=== PATIENT | male | born 1970 | race Caucasian/White ===

== ENCOUNTER 2022-03-08 09:27 | Outpatient (REF) | payer BC, SELFPAY ==
[2022-03-08 11:21] LABS: Hematocrit 46.2 % (42.0-52.0); Hemoglobin 15.3 g/dl (14.0-18.0); Mean Corpuscular HGB Conc 33.1 g/dl (31.0-36.0); Mean Corpuscular Hemoglobin 27.7 pg (27.0-33.0); Mean Corpuscular Volume 83.5 fL (80.0-98.0); Mean Platelet Volume 10.8 fL (9.4-12.4); Platelet Count 249 X10*3/uL (160-400); Red Blood Count 5.53 X10*6/uL (4.60-5.80); Red Cell Distribution Width 14.2 % (11.0-16.0); White Blood Count 6.5 X10*3/uL (4.8-10.8)
[2022-03-08 11:23] LABS: Appearance Urine CLEAR; Color Urine YELLOW; Glucose Urine UA NEG (NEG); Leukocyte Esterase Urine NEG (NEG); Nitrite Urine NEG (NEG); PH 7.5 (5.0-8.0); Specific Gravity - Urine 1.015 (1.005-1.025); Urine Blood NEG (NEG); Urine Ketones NEG (NEG); Urine Protein NEG (NEG-TRACE)
[2022-03-08 11:47] LABS: Alanine Aminotransferase 44 U/L (0-40); Albumin Level 4.1 g/dL (3.5-5.0); Alkaline Phosphatase 46 U/L (39-117); Anion Gap 13 (12-20); Aspartate Amino Transferase 23 U/L (5-37); Bilirubin Direct 0.2 mg/dL (0.0-0.5); Bilirubin Total 0.6 mg/dL (0.0-1.0); Blood Urea Nitrogen 16 mg/dL (9-16); Calcium 9.7 mg/dL (8.4-10.2); Carbon Dioxide 26 mmol/L (22-29); Chloride 103 mmol/L (96-108); Cholesterol 176 mg/dL; Estimated Glomerular Filt Rate > 60; Glucose Random 99 mg/dL (60-115); HDL Cholesterol 41 mg/dL; LDL Cholesterol Calculated 118 mg/dl; Potassium 3.5 mmol/L (3.3-5.1); Sodium 138 mmol/L (135-145); Total Protein 7.1 g/dL (6.5-8.0); Triglycerides 87 mg/dL
[2022-03-08 12:22] LABS: Thyroid Stimulating Hormone 2.22 uIU/mL (0.32-4.0)
== END 2022-03-08 09:28 | disposition home or self-care (01) ==
LOC: HO.HMGCLDS 09:27
PROVIDERS: PCP Internal Medicine; Visit Provider Internal Medicine
DX: I10 Essential (primary) hypertension (principal); E78.00 Pure hypercholesterolemia, unspecified
CPT/HCPCS: 36415; 80048; 80061; 80076; 81003; 84443; 85027

== ENCOUNTER 2023-07-31 09:25 | Outpatient (AMB) | payer BC, SELFPAY ==
--- NOTE | 2023-07-31 09:26 | MHC.PC.OV ---
Vital Signs 07/31/23 09:28 Height 5 ft 6 in Weight 204 lb 6 oz BMI 33.0 BP 124/70 Blood Pressure Location Lt brachial Position Sitting Pulse 66 Pulse Source Pulse Oximeter Pulse Oximetry (%) 97 Oxygen Delivery Method Room Air Intake Visit Reasons: Annual Exam Intake Note: Patient is here today for a physical. 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: No Was dental information given to patient?: Patient has dentist HPI Annual Exam HPI Details 52-year-old male presents to the office requesting an annual physical. [facility] Medical History Hypercholesterolemia Essential (primary) hypertension Surgical History History of colonoscopy History of vasectomy Family History Father Prostate cancer Hypertension Mother Hypertension Sister No problems noted. Son No problems noted. Son No problems noted. Social History Housing: House Alcohol intake: never Patient Tobacco Use Status: Never used Tobacco e-Cigarette/Vaping Use: Never Used Second Hand Smoke Exposure: No service: No Current occupational status: employed Cognitive needs: No Hearing needs: No Vision needs: Yes (Glasses) Questionnaire PHQ-9 Over the last 2 weeks, how often have you been bothered by any of the following problems? 1. Little interest or pleasure in doing things: not at all 2. Feeling down, depressed, or hopeless: not at all 3. Trouble falling or staying asleep, or sleeping too much: not at all 4. Feeling tired or having little energy: not at all 5. Poor appetite or overeating: not at all 6. Feeling bad about yourself - or that you are a failure or have let yourself or your family down: not at all 7. Trouble concentrating on things, such as reading the newspaper or watching television: not at all 8. Moving or speaking so slowly that other people could have noticed. Or the opposite - being so fidgety or restless that you have been moving around a lot more than usual: not at all 9. Thoughts that you would be better off or of hurting yourself in some way: not at all Total score: 0 Depression Screening Interpretation: Negative Source: Developed by Drs. Denis Vallejo, Cassandra Burt, Chaz Pierce and colleagues, with an educational matheus from [employer]. Thrive Questionnaire Date Thrive assessed: 07/31/23 I am a: Patient What is your living situation today?: I have a steady place to live Within the past 12 months, did the food you bought not last and you didn't have the money to get more?: Never true Within the past 12 months, did you worry whether your food would run out before you got money to buy more?: Never true Do you have trouble paying for medicines?: No Do you have trouble getting transportation to medical appointments?: No Do you have trouble paying your heating and electricity bill?: No Do you have trouble taking care of your child, family member or friend?: No Do you have trouble with day-to-day activities such as bathing, preparing meals, shopping, managing finances, etc.?: No Are you currently unemployed and looking for a job?: No Are you interested in more education?: No Currently or been in a relationship where the following occur: no concerns reported AUDIT C Alcohol Use Questionnaire (AUDIT-C) 1. How often do you have a drink containing alcohol?: Never Total Score: 0 PUMA-7 AMB Questionnaire PUMA-7 Date PUMA - 7 assessed: 07/31/23 Feeling nervous, anxious, or on edge: 0 = Not at all Not being able to stop or control worryin = Not at all Worrying too much about different things: 0 = Not at all Trouble relaxin = Not at all Being so restless that it is hard to sit still: 0 = Not at all Becoming easily annoyed or irritable: 0 = Not at all Feeling afraid as if something awful might happen: 0 = Not at all Total PUMA-7 score (0-4 normal; 5-9 mild; 10-14 moderate; 15-21 severe): 0 Source: Developed by Drs. Denis Vallejo, Cassandra Burt, Chaz Pierce and colleagues, with an educational matheus from [employer]. Physical exam (Primary Care) Vital Signs: Last Vital Signs Pulse 66 07/31/23 09:28 BP 124/70 07/31/23 09:28 Pulse Ox 97 07/31/23 09:28 Oxygen Delivery Method Room Air 07/31/23 09:28 Care Plan Goal for BP management: Blood pressure is in range. Continue current medications. BMI result Body Mass Index 33.0 BMI Assessment/Plan discussion: High (1 lb per week weight loss suggested) BMI High, discussed plan: lifestyle, weight reduction, dietary and physical activity Tobacco/Smoking Status: Tobacco use Status Tobacco use date assessed 07/31/23 07/31/23 09:33 Patient Tobacco Use Status Never used Tobacco 07/31/23 09:33 e-Cigarette/Vaping Use Never Used 07/31/23 09:33 PHQ-9: PHQ-9 Score PHQ-9: Total score 0 07/31/23 09:33 Depression Screening Interpretation: Negative Thrive Assessment: Date of Thrive Assessment Date Thrive assessed 07/31/23 07/31/23 09:33 Currently or been in a relationship where the following occur: no concerns reported Advance Care Planning discussion: Exists, not on file Date of discussion: 07/31/23 Forms completed: Health Care Proxy Time spent: 1-15 minutes, not on file Const General: cooperative and healthy appearing Nutritional Appearance: well nourished Orientation/consciousness: patient oriented x3 Limitations: no limitations HENMT Head: Yes normal to inspection Eyes General: appearance normal, both eyes and all related structures Neck Neck: Yes normal visual inspection Chest Chest palpation & inspection: normal palpation of entire chest wall Resp Effort & Inspection: normal respiratory effort Neuro General: patient oriented x3 Assessment and Plan Assessment & Plan (1) Essential (primary) hypertension: Code(s): I10 - Essential (primary) hypertension Plan: Blood pressure is in range. Continue medications at same dosage. (2) Hypercholesterolemia: Code(s): E78.00 - Pure hypercholesterolemia, unspecified Plan: Blood work has been ordered. Will call with results. (3) Annual physical exam: Code(s): Z00.00 - Encounter for general adult medical examination without abnormal findings Plan: Updated date on screening Medications: Refilled betamethasone dipropionate 0.05% 1 appl topical DAILY PRN 45 grams 1RF allergic reaction Coding Level of Care Code New Pt Prev Care 40-64y(70289) Diagnoses Essential (primary) hypertension I10 Hypercholesterolemia E78.00 Annual physical exam Z00.00 Additional Codes Vital Signs *Quality* - Advance Care Planning discussion: Exists, not on file ([id number]) Vital Signs *Quality* - Time spent: 1-15 minutes, not on file ([id number])
[2023-07-31 09:28] VITALS: BP 124/70; PULSE 66; O2SAT 97; BMI 33.0
== END 2023-07-31 10:03 | disposition home or self-care (01) ==
PROVIDERS: PCP Internal Medicine; Visit Provider Internal Medicine
DX: I10 Essential (primary) hypertension (principal); E78.00 Pure hypercholesterolemia, unspecified; Z00.00 Encounter for general adult medical examination without abnormal findings
CPT/HCPCS: 1123F; 1124F; 99386; 99396

== ENCOUNTER 2023-10-13 15:39 | Outpatient (AMB) | payer BC, SELFPAY ==
[2023-10-13 15:49] VITALS: BP 100/70; TEMP 36.2; BMI 25.5
--- NOTE | 2023-10-13 15:49 | MHC.OFFWIV ---
Intake Vital Signs 10/13/23 15:49 10/13/23 15:58 Height 5 ft 6 in 5 ft 6 in Weight 71.668 kg 93.44 kg BMI 25.5 33.2 BP 100/70 130/68 Blood Pressure Location Rt brachial Rt brachial Position Sitting Sitting Pulse 85 Pulse Source Pulse Oximeter Temp 97.2 F 99.1 F Temp Source Temporal Artery Scan Temporal Artery Scan Pulse Oximetry (%) 97 Oxygen Delivery Method Room Air Intake Visit Reasons: EST/cough (lobby masked) Intake Note: pt is here today for cough started Friday Patient Tobacco Use Status: Never used Tobacco Allergies No Known Allergies [No Known Allergies*] Allergy (Verified 10/13/23 16:01) Do you need a note to return to daycare/school/sports/work: Yes HPI HPI Comments History of Present Illness Details [age]-year-old who presents with fatigue, malaise, myalgias, cough, sthat started yesterday. No known sick contacts.? Denies chest pain, shortness of breath, nausea, vomiting, abdominal pain, headache vision change, dizziness, weakness, changes in bowel or urinary habits Physical exam benign History and physical exam concerning for viral illness versus bronchitis versus flu versus COVID versus RSV.? Unlikely pneumonia, ACS, dissection, pulmonary embolism, acute respiratory distress Plan at this time viral testing will discharge patient home with supportive measures.? Educated patient on diagnosis and treatment plan, answered all question, patient verbalizes understanding.? At this time patient will be discharged home, advised to return with new or worsening symptoms.? Educated on worrisome signs and symptoms and when to return.? At this time I feel comfortable discharge home. [facility] Medical History Hypercholesterolemia Essential (primary) hypertension Surgical History History of colonoscopy History of vasectomy Family History Father Prostate cancer Hypertension Mother Hypertension Sister No problems noted. Son No problems noted. Son No problems noted. Social History Housing: House Alcohol intake: never Patient Tobacco Use Status: Never used Tobacco e-Cigarette/Vaping Use: Never Used Second Hand Smoke Exposure: No service: No Current occupational status: employed Cognitive needs: No Hearing needs: No Vision needs: Yes (Glasses) Review of Systems Const Details: Constitutional : No Weight loss, No Fever, No Chills, + Fatigue, + Malaise ENT/Mouth : No sore throat, No Rhinorrhea Eyes: No Eye Pain, No Swelling, No Redness Cardiovascular : No Chest Pain, No SOB, No Dyspnea on Exertion, No Orthopnea, No Edema, No Palpitations Respiratory : + Cough, No Sputum, No Wheezing Gastrointestinal : No Nausea, No Vomiting, No Diarrhea, No Constipation, No abdominal Pain, No Hematochezia, No Melena Genitourinary : No Dysuria, No Urinary Frequency, No Hematuria, Musculoskeletal : No joint pain, No Myalgias, No Joint Swelling Skin : No Skin Lesions, No rash Neuro : No Weakness, No Numbness, No Dizziness, No Headache Psych : No Anxiety/Panic, No Depression All other systems reviewed and are negative All systems reviewed & are unremarkable except as noted in HPI and below Physical Exam Vital Signs: Last Vital Signs Temp 99.1 F 10/13/23 15:58 Pulse 85 10/13/23 15:58 BP 130/68 10/13/23 15:58 Pulse Ox 97 10/13/23 15:58 Oxygen Delivery Method Room Air 10/13/23 15:58 BMI result Body Mass Index 33.2 vss Appearance: Alert.? Oriented X3.? No acute distress.? Head: Normocephalic, atraumatic, no step-offs or deformities Eyes: Pupils equal, round and reactive to light.? ENT: Pharynx normal.? Neck: Normal inspection.? Neck supple.? CVS: Normal heart rate and rhythm.? Pulses normal.? Respiratory: No respiratory distress.? Breath sounds normal.? Abdomen: Soft and nontender.? Skin: Skin warm and dry.? Normal skin color.? Normal skin turgor.? Extremities: No lower extremity edema.? No calf ttp. 5/5 strength to bilateral upper and lower extremities Neuro: Oriented X 3.? No motor deficit.? No sensory deficit. CN 2-12 intact Assessment & Plan Assessment & Plan (1) Viral illness: Code(s): B34.9 - Viral infection, unspecified Plan Take your medications as prescribed. If you were prescribed antibiotics today, it is important that you take your medication to their entirety, do not skip any doses, do not finish them early. Follow-up with your primary care provider this week. Return to the emergency department with new or worsening symptoms. Such as fevers, chills, chest pain, shortness of breath, nausea, vomiting, dizziness, headache, vision changes, lethargy In case of emergency call 911 Orders: Orders SARS-CoV2/FLU/RSV Today B34.9 - Viral infection, unspecified Medications: New prednisone 20 mg PO DAILY 5 days 5 tabs 0RF albuterol sulfate 90 mcg/actuation 2 puffs inhalation Q6H PRN 6.7 grams 0RF shortness of breath or wheezing benzonatate 100 mg PO BID PRN 14 caps 0RF cough Coding Level of Care Code Est Pt Level 3 (71356) Diagnoses Viral illness B34.9
[2023-10-13 15:58] VITALS: BP 130/68; PULSE 85; TEMP 37.3; O2SAT 97; BMI 33.2
== END 2023-10-13 16:46 | disposition home or self-care (01) ==
PROVIDERS: PCP Internal Medicine; Visit Provider Physician Assistant
DX: B34.9 Viral infection, unspecified (principal)
CPT/HCPCS: 99213

== ENCOUNTER 2023-10-13 16:03 | Outpatient (REF) | payer BC, SELFPAY ==
[2023-10-14 12:29] LABS: Influenza A PCR POSITIVE (Negative); Influenza B PCR NEGATIVE (Negative); Resp Syncy Virus RNA Qual PCR NEGATIVE (Negative); SARS COV2 PCR INHOUSE NEGATIVE (Negative)
== END 2023-10-13 16:04 | disposition home or self-care (01) ==
LOC: HO.LAB 16:03
PROVIDERS: Visit Provider Physician Assistant
DX: Z11.52 Encounter for screening for COVID-19 (principal); Z20.822 Contact with and (suspected) exposure to COVID-19; B34.9 Viral infection, unspecified
CPT/HCPCS: 0241U

== ENCOUNTER 2024-01-22 09:13 | Outpatient (AMB) | payer BC, SELFPAY ==
--- NOTE | 2024-01-22 09:15 | MHC.PC.OV ---
Vital Signs 01/22/24 09:17 Height 5 ft 6 in Weight 207 lb 4 oz BMI 33.4 BP 110/70 Blood Pressure Location Lt brachial Position Sitting Pulse 86 Pulse Source Pulse Oximeter Pulse Oximetry (%) 99 Oxygen Delivery Method Room Air Intake Visit Reasons: 6 month f/u Intake Note: Patient is here to follow up on HTN, Hypercholesterolemia. Ham Boner Required: No Rental Coordinator: Not Required per policy Accompanied by: Self / Same As Patient Allergies No Known Allergies [No Known Allergies*] Allergy (Verified 01/22/24 09:16) Tobacco use date assessed: 01/22/24 Dental Screening Dental Screen Date: 01/22/24 Did you have a dental visit in the last 12 months?: Yes Did you have a dental problem in the last 6 months where you did not have access to dental care?: No Was dental information given to patient?: Patient has dentist HPI 6 month f/u HPI Details 53-year-old male presents to the office to discuss his chronic medical conditions. Patient is compliant with all medications and reporting no side effects. He did not get any blood work done the last time. Able to function and do activities of daily living. He is worried about his weight. Able to drive at night. [facility] Medical History Obesity (BMI 30.0-34.9) Hypercholesterolemia Essential (primary) hypertension Surgical History History of colonoscopy History of vasectomy Family History Father Prostate cancer Hypertension Mother Hypertension Sister No problems noted. Son No problems noted. Son No problems noted. Social History Housing: House Alcohol intake: never Patient Tobacco Use Status: Never used Tobacco e-Cigarette/Vaping Use: Never Used Second Hand Smoke Exposure: No service: No Current occupational status: employed Cognitive needs: No Hearing needs: No Vision needs: Yes (Glasses) Questionnaire PHQ-9 Over the last 2 weeks, how often have you been bothered by any of the following problems? 1. Little interest or pleasure in doing things: not at all 2. Feeling down, depressed, or hopeless: not at all 3. Trouble falling or staying asleep, or sleeping too much: not at all 4. Feeling tired or having little energy: not at all 5. Poor appetite or overeating: not at all 6. Feeling bad about yourself - or that you are a failure or have let yourself or your family down: not at all 7. Trouble concentrating on things, such as reading the newspaper or watching television: not at all 8. Moving or speaking so slowly that other people could have noticed. Or the opposite - being so fidgety or restless that you have been moving around a lot more than usual: not at all 9. Thoughts that you would be better off or of hurting yourself in some way: not at all Total score: 0 Depression Screening Interpretation: Negative Depression Screening Done: Yes Source: Developed by Drs. Denis Vallejo, Cassandra Burt, Chaz Pierce and colleagues, with an educational matheus from [employer]. Thrive Questionnaire Date Thrive assessed: 01/22/24 I am a: Patient What is your living situation today?: I have a steady place to live Within the past 12 months, did the food you bought not last and you didn't have the money to get more?: Never true Within the past 12 months, did you worry whether your food would run out before you got money to buy more?: Never true Do you have trouble paying for medicines?: No Do you have trouble getting transportation to medical appointments?: No Do you have trouble paying your heating and electricity bill?: No Do you have trouble taking care of your child, family member or friend?: No Do you have trouble with day-to-day activities such as bathing, preparing meals, shopping, managing finances, etc.?: No Are you currently unemployed and looking for a job?: No Are you interested in more education?: No Currently or been in a relationship where the following occur: no concerns reported THRIVE Score: 0 AUDIT C Alcohol Use Questionnaire (AUDIT-C) 1. How often do you have a drink containing alcohol?: Never Total Score: 0 PUMA-7 AMB Questionnaire PUMA-7 Date PUMA - 7 assessed: 01/22/24 Feeling nervous, anxious, or on edge: 0 = Not at all Not being able to stop or control worryin = Not at all Worrying too much about different things: 0 = Not at all Trouble relaxin = Not at all Being so restless that it is hard to sit still: 0 = Not at all Becoming easily annoyed or irritable: 0 = Not at all Feeling afraid as if something awful might happen: 0 = Not at all Total PUMA-7 score (0-4 normal; 5-9 mild; 10-14 moderate; 15-21 severe): 0 Source: Developed by Drs. Denis Vallejo, Cassandra Burt, Chaz Pierce and colleagues, with an educational matheus from [employer]. Physical exam (Primary Care) Vital Signs: Last Vital Signs Pulse 86 01/22/24 09:17 BP 110/70 01/22/24 09:17 Pulse Ox 99 01/22/24 09:17 Oxygen Delivery Method Room Air 01/22/24 09:17 BMI result Body Mass Index 33.4 Tobacco/Smoking Status: Tobacco use Status Tobacco use date assessed 01/22/24 01/22/24 09:21 Patient Tobacco Use Status Never used Tobacco 01/22/24 09:21 e-Cigarette/Vaping Use Never Used 01/22/24 09:21 PHQ-9: PHQ-9 Score PHQ-9: Total score 0 01/22/24 09:21 Depression Screening Interpretation: Negative Thrive Assessment: Date of Thrive Assessment Date Thrive assessed 01/22/24 01/22/24 09:21 Currently or been in a relationship where the following occur: no concerns reported Const General: cooperative and healthy appearing Nutritional Appearance: well nourished Orientation/consciousness: patient oriented x3 Limitations: no limitations HENMT Head: Yes normal to inspection Eyes General: appearance normal, both eyes and all related structures Neck Neck: Yes normal visual inspection Chest Chest palpation & inspection: normal palpation of entire chest wall Resp Effort & Inspection: normal respiratory effort Neuro General: patient oriented x3 Assessment and Plan Assessment & Plan (1) Hypercholesterolemia: Code(s): E78.00 - Pure hypercholesterolemia, unspecified Plan: Blood work has been ordered. Continue medications at same dosage. (2) Essential (primary) hypertension: Code(s): I10 - Essential (primary) hypertension Plan: Blood pressure is in range. Continue medications at same dosage. Blood work has been ordered. Will call with results. (3) Obesity (BMI 30.0-34.9): Code(s): E66.9 - Obesity, unspecified Plan: Counseling on the importance of diet and exercise done. Orders: Orders Basic Metabolic Panel Today E78.00 - Pure hypercholesterolemia, unspecified, I10 - Essential (primary) hypertension Liver Panel Today E78.00 - Pure hypercholesterolemia, unspecified, I10 - Essential (primary) hypertension UA and rflx microscopic Today E78.00 - Pure hypercholesterolemia, unspecified, I10 - Essential (primary) hypertension Prostate Specific Antigen Scr Today E78.00 - Pure hypercholesterolemia, unspecified, I10 - Essential (primary) hypertension Complete Blood Count no Diff Today E78.00 - Pure hypercholesterolemia, unspecified, I10 - Essential (primary) hypertension Lipid Panel Today E78.00 - Pure hypercholesterolemia, unspecified, I10 - Essential (primary) hypertension Thyroid Stimulating Hormone Today E78.00 - Pure hypercholesterolemia, unspecified, I10 - Essential (primary) hypertension Coding Level of Care Code Est Pt Level 4 (09843) Diagnoses Hypercholesterolemia E78.00 Essential (primary) hypertension I10 Obesity (BMI 30.0-34.9) E66.9
[2024-01-22 09:17] VITALS: BP 110/70; PULSE 86; O2SAT 99; BMI 33.4
== END 2024-01-22 09:59 | disposition home or self-care (01) ==
PROVIDERS: PCP Internal Medicine; Visit Provider Internal Medicine
DX: E78.00 Pure hypercholesterolemia, unspecified (principal); E66.9 Obesity, unspecified; Z68.33 Body mass index [BMI] 33.0-33.9, adult; I10 Essential (primary) hypertension
CPT/HCPCS: 99214

== ENCOUNTER 2024-04-22 08:09 | Outpatient (REF) | payer BC, SELFPAY ==
[2024-04-22 10:58] LABS: Hematocrit 46.7 % (42.0-52.0); Hemoglobin 16.1 g/dl (14.0-18.0); Mean Corpuscular HGB Conc 34.5 g/dl (31.0-36.0); Mean Corpuscular Hemoglobin 28.3 pg (27.0-33.0); Mean Corpuscular Volume 82.1 fL (80.0-98.0); Mean Platelet Volume 10.3 fL (9.4-12.4); Platelet Count 254 X10*3/uL (160-400); Red Blood Count 5.69 X10*6/uL (4.60-5.80); White Blood Count 7.5 X10*3/uL (4.8-10.8)
[2024-04-22 11:04] LABS: Appearance Urine Clear; Color Urine Yellow; Glucose Urine UA Negative (Negative); Leukocyte Esterase Urine Negative (Negative); Nitrite Urine Negative (Negative); PH 7.5 (5.0-9.0); Urine Blood Negative (Negative); Urine Ketones Negative (Negative); Urine Protein Negative (Neg-Trace)
[2024-04-22 11:24] LABS: Alanine Aminotransferase 44 U/L (0-40); Albumin Level 4.2 g/dL (3.5-5.0); Alkaline Phosphatase 54 U/L (39-117); Anion Gap 11 (12-20); Aspartate Amino Transferase 24 U/L (5-37); Bilirubin Direct 0.2 mg/dL (0.0-0.5); Bilirubin Total 0.4 mg/dL (0.0-1.0); Blood Urea Nitrogen 15 mg/dL (9-16); Calcium 9.7 mg/dL (8.4-10.2); Carbon Dioxide 29 mmol/L (22-29); Chloride 103 mmol/L (96-108); Cholesterol 171 mg/dL (<200); Estimated Glomerular Filt Rate > 60; Glucose Random 98 mg/dL (60-115); HDL Cholesterol 40 mg/dL (>40); LDL Cholesterol Calculated 114 mg/dL (<100); Potassium 3.2 mmol/L (3.3-5.1); Sodium 140 mmol/L (135-145); Total Protein 7.2 g/dL (6.5-8.0); Triglycerides 87 mg/dL (<150)
[2024-04-22 11:33] LABS: Prostate Specific Antigen Scr 1.38 ng/mL (<0.05-4.0)
[2024-04-22 11:40] LABS: Thyroid Stimulating Hormone 2.26 uIU/mL (0.32-4.0)
== END 2024-04-22 08:10 | disposition home or self-care (01) ==
LOC: HO.10HDL 08:09
PROVIDERS: Visit Provider Internal Medicine
DX: E78.00 Pure hypercholesterolemia, unspecified (principal); I10 Essential (primary) hypertension
CPT/HCPCS: 36415; 80048; 80061; 80076; 81003; 84153; 84443; 85027

== ENCOUNTER 2024-07-20 14:39 | Outpatient (AMB) | payer BC, SELFPAY ==
[2024-07-20 14:41] VITALS: BP 132/78; PULSE 72; TEMP 36.8; O2SAT 97; BMI 33.4
--- NOTE | 2024-07-20 14:41 | AM.OFFWIN_ITS ---
Intake Vital Signs 07/20/24 14:41 Height 5 ft 6 in Weight 207 lb BMI 33.4 BP 132/78 Blood Pressure Location Lt brachial Position Sitting Pulse 72 Pulse Source Pulse Oximeter Temp 98.2 F Temp Source Oral Pulse Oximetry (%) 97 Oxygen Delivery Method Room Air Intake Visit Reasons: EP RT eye red/itchy Intake Note: pt c/o RT eye redness and itchiness. W/ Sticky discharge. Started yesterday Patient Tobacco Use Status: Never used Tobacco Allergies No Known Allergies [No Known Allergies*] Allergy (Verified 07/20/24 14:41) Do you need a note to return to daycare/school/sports/work: No HPI HPI Comments History of Present Illness Details Patient is a 53-year-old male complaining of right eye itchiness and redness and weeping clear fluid. He denies any pain or changes in his vision. He does work at a [id number] and was in the Children's room yesterday so he is concerned it could be bacterial. He denies any cough or congestion, he denies his eye being crusted shut in the morning and denies any yellow discharge. [facility] Medical History Obesity (BMI 30.0-34.9) Hypercholesterolemia Essential (primary) hypertension Surgical History History of colonoscopy History of vasectomy Family History Father Prostate cancer Hypertension Mother Hypertension Sister No problems noted. Son No problems noted. Son No problems noted. Social History Housing: House Alcohol intake: never Patient Tobacco Use Status: Never used Tobacco e-Cigarette/Vaping Use: Never Used Second Hand Smoke Exposure: No service: No Current occupational status: employed Cognitive needs: No Hearing needs: No Vision needs: Yes (Glasses) Review of Systems Const All systems reviewed & are unremarkable except as noted in HPI and below Physical Exam Vital Signs: Last Vital Signs Temp 98.2 F 07/20/24 14:41 Pulse 72 07/20/24 14:41 BP 132/78 07/20/24 14:41 Pulse Ox 97 07/20/24 14:41 Oxygen Delivery Method Room Air 07/20/24 14:41 BMI result Body Mass Index 33.4 Const General: cooperative, healthy appearing, comfortable and no acute distress Orientation/consciousness: patient oriented x3 Limitations: no limitations HEENT Head: Yes normal to inspection Ears: hearing grossly normal bilaterally and external ears normal General nose exam: Normal external nose present, Normal nares present and No nasal discharge present Face and sinus: Yes normal facial exam Mouth: Normal oral and palatal mucosa present and moist mucous membranes Throat: Yes tonsils normal, Yes uvula midline, Yes posterior oropharynx abnormal (Erythema) and Yes cobblestoning Eyes Alignment and Position: alignment normal and position normal Periorbital: periorbital findings normal Eyelids: Yes eyelid abnormality (Slight erythema right upper and lower) Conjunctivae: conjunctival abnormal right conjunctival injection (Slight) and discharge (Watery) Pupils: Equal, round and reactive pupils present EOM: EOMs intact bilaterally Neck Neck: Yes normal visual inspection Resp Effort & Inspection: normal respiratory effort and able to speak in complete sentences Skin General skin exam: no rashes or lesions noted Neuro General: patient oriented x3 Cranial nerves: Yes Equal, round and reactive pupils present Extrem General: Yes normal to inspection and Yes no clubbing, cyanosis or edema Assessment & Plan Assessment & Plan (1) Allergic conjunctivitis of right eye: Code(s): H10.11 - Acute atopic conjunctivitis, right eye Plan: Recommended using Patadene drops. If anything changes and the crusting becomes yellow or his eyes crusted shut in the morning, he can message me and we can send erythromycin ointment but it appears to be allergic. Plan See above Coding Level of Care Code Est Pt Level 3 (40605) Diagnoses Allergic conjunctivitis of right eye H10.11
== END 2024-07-20 15:02 | disposition home or self-care (01) ==
PROVIDERS: PCP Internal Medicine; Visit Provider Physician Assistant
DX: H10.11 Acute atopic conjunctivitis, right eye (principal)

== ENCOUNTER → 2024-07-20 14:39 | Outpatient (BNVA) | payer BC, SELFPAY | PROVIDERS: PCP Internal Medicine | DX: H10.11 Acute atopic conjunctivitis, right eye (principal) ==

== ENCOUNTER 2024-07-29 08:53 | Outpatient (AMB) | payer BC, SELFPAY ==
--- NOTE | 2024-07-29 08:59 | MHC.PC.OV ---
Vital Signs 07/29/24 09:00 Height 5 ft 6 in Weight 205 lb BMI 33.1 BP 130/60 Blood Pressure Location Lt brachial Position Sitting Pulse 74 Pulse Source Pulse Oximeter Pulse Oximetry (%) 98 Oxygen Delivery Method Room Air Intake Visit Reasons: 6mth f/u Intake Note: Patient is here to follow up on HTN, Hypercholesterolemia. Rotational Moulding Operator Required: No Commercial Escrow Assistant: Not Required per policy Accompanied by: Self / Same As Patient Allergies No Known Allergies [No Known Allergies*] Allergy (Verified 07/29/24 09:00) Tobacco use date assessed: 07/29/24 Dental Screening Dental Screen Date: 01/22/24 HPI 6mth f/u HPI Details 53-year-old male presents to the office to discuss his chronic medical conditions. Patient is compliant with medications and reporting no side effects. Able to function and do all activities of daily living. Since the beginning of summer, patient is now experiencing tinnitus. In both ears. Low-frequency. The symptoms are worse especially when he is trying to sleep at night or he is in a quiet environment. He also has a nevus on the right side of the neck that he would like examined. [facility] Medical History Tinnitus Atypical nevi Obesity (BMI 30.0-34.9) Hypercholesterolemia Essential (primary) hypertension Surgical History (Updated 07/29/24 @ 09:10 by Terry Bobo MD) History of colonoscopy (~11/05/18) History of vasectomy Family History Father Prostate cancer Hypertension Mother Hypertension Sister No problems noted. Son No problems noted. Son No problems noted. Social History Housing: House Alcohol intake: never Patient Tobacco Use Status: Never used Tobacco e-Cigarette/Vaping Use: Never Used Second Hand Smoke Exposure: No service: No Current occupational status: employed Cognitive needs: No Hearing needs: No Vision needs: Yes (Glasses) Questionnaire Thrive Questionnaire Date Thrive assessed: 01/22/24 Are you currently unemployed and looking for a job?: No PUMA-7 AMB Questionnaire PUMA-7 Date PUMA - 7 assessed: 01/22/24 Source: Developed by Drs. Denis Vallejo, Cassandra Burt, Chaz Pierce and colleagues, with an educational matheus from [employer]. Physical exam (Primary Care) Vital Signs: Last Vital Signs Pulse 74 07/29/24 09:00 BP 130/60 07/29/24 09:00 Pulse Ox 98 07/29/24 09:00 Oxygen Delivery Method Room Air 07/29/24 09:00 BMI result Body Mass Index 33.1 Tobacco/Smoking Status: Tobacco use Status Tobacco use date assessed 07/29/24 07/29/24 09:03 Patient Tobacco Use Status Never used Tobacco 07/29/24 09:03 e-Cigarette/Vaping Use Never Used 07/29/24 09:03 Thrive Assessment: Date of Thrive Assessment Date Thrive assessed 01/22/24 07/29/24 09:03 Const General: cooperative and healthy appearing Nutritional Appearance: well nourished Orientation/consciousness: patient oriented x3 Limitations: no limitations HENMT Head: Yes normal to inspection Eyes General: appearance normal, both eyes and all related structures Neck Other: Skin: 2 cm lesion with hyperpigmented area at the edges. No evidence of bleeding. Neck: Yes normal visual inspection Chest Chest palpation & inspection: normal palpation of entire chest wall Resp Effort & Inspection: normal respiratory effort Neuro General: patient oriented x3 Assessment and Plan Assessment & Plan (1) Atypical nevi: Code(s): D22.9 - Melanocytic nevi, unspecified Plan: A dermatology appointment has been scheduled for excision of the lesion. (2) Tinnitus: Code(s): H93.19 - Tinnitus, unspecified ear Plan: In ENT appointment has been requested for evaluation of the tinnitus. (3) Hypercholesterolemia: Code(s): E78.00 - Pure hypercholesterolemia, unspecified (4) Essential (primary) hypertension: Code(s): I10 - Essential (primary) hypertension Plan: Blood pressure is in range. Continue medications at same dosage. Orders: Referrals Dermatology Referral D22.9 - Melanocytic nevi, unspecified Ear/Nose/Throat Referral H93.19 - Tinnitus, unspecified ear Coding Level of Care Code Est Pt Level 4 (87010) Diagnoses Atypical nevi D22.9 Tinnitus H93.19 Hypercholesterolemia E78.00 Essential (primary) hypertension I10
[2024-07-29 09:00] VITALS: BP 130/60; PULSE 74; O2SAT 98; BMI 33.1
== END 2024-07-29 09:18 | disposition home or self-care (01) ==
PROVIDERS: PCP Internal Medicine; Visit Provider Internal Medicine
DX: D22.9 Melanocytic nevi, unspecified (principal); H93.19 Tinnitus, unspecified ear; E78.00 Pure hypercholesterolemia, unspecified; I10 Essential (primary) hypertension

== ENCOUNTER → 2024-07-29 08:53 | Outpatient (BNVA) | payer BC, SELFPAY | PROVIDERS: PCP Internal Medicine; Visit Provider Internal Medicine | DX: D22.9 Melanocytic nevi, unspecified (principal); H93.19 Tinnitus, unspecified ear; E78.00 Pure hypercholesterolemia, unspecified; I10 Essential (primary) hypertension ==

== ENCOUNTER 2025-01-27 09:25 | Outpatient (AMB) | payer BC, SELFPAY ==
[2025-01-27 09:29] VITALS: BP 124/74; PULSE 68; TEMP 36.2; O2SAT 98; BMI 33.1
--- NOTE | 2025-01-27 09:29 | A.OFFPC_ITS ---
Vital Signs 01/27/25 09:29 Height 5 ft 6 in Weight 205 lb 2 oz BMI 33.1 BP 124/74 Blood Pressure Location Lt brachial Position Sitting Pulse 68 Pulse Source Pulse Oximeter Temp 97.1 F Temp Source Temporal Artery Scan Pulse Oximetry (%) 98 Oxygen Delivery Method Room Air Intake Visit Reasons: 6 mo follow up Skin Peeling Machine Operator Required: No Accompanied by: Self / Same As Patient Allergies No Known Allergies [No Known Allergies*] Allergy (Verified 01/27/25 10:04) Medication List - Last Reconciled 01/27/25 by Sally Nelson PA-C aspirin (Adult Aspirin Regimen) 81 mg PO DAILY atorvastatin 10 mg PO DAILY betamethasone dipropionate 0.05% 1 appl topical DAILY PRN enalapril maleate 10 mg PO DAILY hydrochlorothiazide 25 mg PO DAILY Tobacco use date assessed: 01/27/25 Dental Screening Dental Screen Date: 01/27/25 Did you have a dental visit in the last 12 months?: Yes Did you have a dental problem in the last 6 months where you did not have access to dental care?: No Was dental information given to patient?: Patient has dentist [facility] Medical History (Updated 01/27/25 @ 10:09 by Sally Nelson PA-C) Follow-up exam, 3-6 months since previous exam Tinnitus Atypical nevi Obesity (BMI 30.0-34.9) Hypercholesterolemia Essential (primary) hypertension Surgical History History of colonoscopy (~11/05/18) History of vasectomy Family History Father Prostate cancer Hypertension Mother Hypertension Sister No problems noted. Son No problems noted. Son No problems noted. Social History Housing: House Alcohol intake: never Patient Tobacco Use Status: Never used Tobacco e-Cigarette/Vaping Use: Never Used Second Hand Smoke Exposure: No service: No Current occupational status: employed Cognitive needs: No Hearing needs: No Vision needs: Yes (Glasses) Questionnaire PHQ-9 Over the last 2 weeks, how often have you been bothered by any of the following problems? 1. Little interest or pleasure in doing things: not at all 2. Feeling down, depressed, or hopeless: not at all 3. Trouble falling or staying asleep, or sleeping too much: not at all 4. Feeling tired or having little energy: not at all 5. Poor appetite or overeating: not at all 6. Feeling bad about yourself - or that you are a failure or have let yourself or your family down: not at all 7. Trouble concentrating on things, such as reading the newspaper or watching television: not at all 8. Moving or speaking so slowly that other people could have noticed. Or the opposite - being so fidgety or restless that you have been moving around a lot more than usual: not at all 9. Thoughts that you would be better off or of hurting yourself in some way: not at all Total score: 0 Depression Screening Interpretation: Negative Depression Screening Done: Yes 09546 - PHQ-9 Billing: Yes Source: Developed by Drs. Denis Vallejo, Cassandra Burt, Chaz Pierce and colleagues, with an educational matheus from [employer]. Thrive Questionnaire Date Thrive assessed: 01/27/25 I am a: Patient What is your living situation today?: I have a steady place to live Within the past 12 months, did the food you bought not last and you didn't have the money to get more?: Never true Within the past 12 months, did you worry whether your food would run out before you got money to buy more?: Never true Do you have trouble paying for medicines?: No Do you have trouble getting transportation to medical appointments?: No Do you have trouble paying your heating and electricity bill?: No Do you have trouble taking care of your child, family member or friend?: No Do you have trouble with day-to-day activities such as bathing, preparing meals, shopping, managing finances, etc.?: No Are you currently unemployed and looking for a job?: No Are you interested in more education?: No Please select the resources that you would like help with: None Currently or been in a relationship where the following occur: No concerns reported THRIVE Score: 0 AUDIT C Alcohol Use Questionnaire (AUDIT-C) 1. How often do you have a drink containing alcohol?: Never 3. How often do you have six or more drinks on one occasion?: Never Total Score: 0 Score Reviewed/Action Taken: No PUMA-7 AMB Questionnaire PUMA-7 Date PUMA - 7 assessed: 01/27/25 Feeling nervous, anxious, or on edge: 0 = Not at all Not being able to stop or control worryin = Not at all Worrying too much about different things: 0 = Not at all Trouble relaxin = Not at all Being so restless that it is hard to sit still: 0 = Not at all Becoming easily annoyed or irritable: 0 = Not at all Feeling afraid as if something awful might happen: 0 = Not at all Total PUMA-7 score (0-4 normal; 5-9 mild; 10-14 moderate; 15-21 severe): 0 Source: Developed by Drs. Denis Vallejo, Cassandra Burt, Chaz Pierce and colleagues, with an educational matheus from [employer]. PUMA-7 Assessment Billing PUMA-7 Assessment Tool: PUMA-7 Assessment 08797 Physical exam (Primary Care) Vital Signs: Last Vital Signs Temp 97.1 F 01/27/25 09:29 Pulse 68 01/27/25 09:29 BP 124/74 01/27/25 09:29 Pulse Ox 98 01/27/25 09:29 Oxygen Delivery Method Room Air 01/27/25 09:29 Care Plan Goal for BP management: <130/80 at Goal BMI result Body Mass Index 33.1 BMI Assessment/Plan discussion: High BMI High, discussed plan: lifestyle, weight reduction, dietary, physical activity and alcohol moderation Tobacco/Smoking Status: Tobacco use Status Tobacco use date assessed 01/27/25 01/27/25 09:31 Patient Tobacco Use Status Never used Tobacco 01/27/25 09:31 e-Cigarette/Vaping Use Never Used 01/27/25 09:31 PHQ-9: PHQ-9 Score PHQ-9: Total score 0 01/27/25 09:31 Depression Screening Interpretation: Negative Thrive Assessment: Date of Thrive Assessment Date Thrive assessed 01/27/25 01/27/25 09:31 Currently or been in a relationship where the following occur: No concerns reported Coding Level of Care Code Est Pt Level 4 (36019) Complex EM visit Add On G2211 Diagnoses Hypercholesterolemia E78.00 Essential (primary) hypertension I10 Obesity (BMI 30.0-34.9) E66.9 Tinnitus H93.19 Follow-up exam, 3-6 months since previous exam Z09 Additional Codes PUMA-7 Assessment Billing - PUMA-7 Assessment Tool: PUMA-7 Assessment 56768 ([id number]) PHQ-9 - 63032 - PHQ-9 Billing: Yes ([id number]) Assessment & Plan Assessment & Plan (1) Hypercholesterolemia: Code(s): E78.00 - Pure hypercholesterolemia, unspecified Category: Medical Plan: LDL level goal less than 100. Triglyceride level goal less than 150. Total cholesterol level goal less than 200. HDL level goal greater than 40. Patient had labs on 04/22/2024 and triglycerides were 87 at goal. Total cholesterol 171 at goal. LDL elevated at 114. HDL was 40 at goal. Patient to continue atorvastatin 10 mg daily. Condition is chronic and stable continue to monitor. (2) Essential (primary) hypertension: Code(s): I10 - Essential (primary) hypertension Category: Medical Plan: Blood pressure goal less than 130/90. Blood pressure at goal. Patient to continue aspirin 81 mg, atorvastatin 10 mg daily, enalapril 10 mg daily, hydrochlorothiazide 25 mg daily. Condition is chronic and stable continue to monitor. (3) Obesity (BMI 30.0-34.9): Code(s): E66.9 - Obesity, unspecified Category: Medical Plan: Patient to improved diet and exercise regimen. Condition is chronic and stable continue to monitor. (4) Tinnitus: Code(s): H93.19 - Tinnitus, unspecified ear Category: Medical Plan: Patient with chronic tinnitus. Denies any other symptoms related to this. Will follow-up on ENT referral placed 05/22/2024 and if new referral is indicated will place. Condition is chronic and stable continue to monitor. (5) Follow-up exam, 3-6 months since previous exam: Code(s): Z09 - Encounter for follow-up examination after completed treatment for conditions other than malignant neoplasm Category: Medical Plan Plan Patient was informed and verbally consented to the use of an ambient scribe for clinic note documentation during this visit. 1. History Of Plantar Fasciitis Resolved Continue preventive stretching exercises; reassess if symptoms recur. 2. Essential Hypertension Continue current antihypertensive therapy; monitor blood pressure and electrolyte levels with regular follow-ups. 3. Atypical Birthmarks Instruct patient to observe for changes; scheduled monitoring as necessary. 4. Obesity Encourage increased physical activity and dietary management to address weight concerns. 5. Hyperlipidemia Advise continuation of atorvastatin; schedule routine lipid profile tests for efficacy monitoring. 6. Tinnitus Follow-up with ENT for persistent tinnitus with referral confirmed; patient instructed to report any increase in symptoms. Discussion Notes In today's visit, we discussed the ongoing management of the patient's tinnitus. He has been experiencing persistent tinnitus, and we confirmed that the referral to ENT would be renewed to investigate further if underlying conditions could be contributing. The patient was advised on monitoring additional symptoms like hearing loss. We reviewed the management of hypertension, which remains well- controlled under current medication, and emphasized the need to continue monitoring for any electrolyte imbalances related to his antihypertensive arlene men. We discussed continued compliance with atorvastatin therapy for hyperlipidemia management and recommended appropriate blood tests to assess control over cholesterol levels. The patient was encouraged to continue exercise to mitigate obesity. Previous plantar fasciitis issues were discussed with recommendations to maintain stretching routines. The patient was reminded to keep monitoring atypical birthmarks and report any changes. We addressed his difficulties with accessing the referral system and agreed to assist as needed. A follow-up plan was agreed upon for six months, prior to which blood work is to be completed to assess the efficacy and adjustments in current therapies. Orders: Orders Hemoglobin A1c Today Z00.00 - Encounter for general adult medical examination without abnormal findings PSA,Total (Free>4and<10) Today Z00.00 - Encounter for general adult medical examination without abnormal findings Patient Instructions: Patient Instructions - Follow up with ENT for tinnitus when contacted for your referral appointment. - Continue taking blood pressure, cholesterol, and other prescribed medications as directed. - Increase your physical activity with regular walking to help manage weight. - Schedule fasting bloodwork before follow-up for kidney, liver, and cholesterol checks. - Monitor for any new or changing symptoms, especially relating to tinnitus or birthmarks, and report these immediately. - Return for a routine check-up in six months, ensuring all recommended tests are completed beforehand. - Ensure engagement in regular stretching for plantar fasciitis prevention. - Maintain a balanced diet as advised to aid in weight management. Scribe Plan - Not visible on output: History of Present Illness The patient is a 54-year-old male presenting for a six-month follow-up for his chronic medical condition. In addition he would like to discuss his tinnitus. He describes the sensation as ringing in the ears that is most noticeable in silent settings. This issue has been persistent, originating approximately six months prior. There is no evidence of associated dizziness or auditory disturbances. Referral to ENT for the current ear condition was placed but not pursued due to oversight with electronic portal systems. The patient has essential hypertension and hyperlipidemia and mentions an incident of low potassium previously identified during routine lab work. He was also diagnosed with obesity and mentions resolved plantar fasciitis of the left foot. Atypical birthmarks have been noted without significant change, and there is a plan to repeat a colonoscopy which he last had in 2019. Review of Systems - Ears: Reports tinnitus (ear ringing) - Constitutional: Denies recent weight change, weakness, or fatigue - Cardiovascular: Denies chest pain or dyspnea - Gastrointestinal: Denies black or bloody stools - Genitourinary: Denies urinary changes Physical Exam Appearance: Alert. Oriented X3. No acute distress. Head: Normal external exam. Normocephalic. Atraumatic. Eyes: Pupils are equal, round, and reactive to light. Extraocular movements intact. Conjunctiva and sclera normal. Eyelids normal. Ears: External auditory canal normal. Tympanic membranes normal. Slight wax present, but not significant enough to cause issues. Throat: Pharynx normal. Uvula midline. Moist mucous membranes. Neck: Normal inspection. Neck supple. Full range of motion. Cardiovascular: Normal heart rate and rhythm. Heart sound normal. No murmurs noted. Pulses normal throughout. Respiratory: No respiratory distress. Painless inspiration. Breath sounds normal. No wheezes/rales/rhonchi noted. Chest nontender. No accessory muscle usage noted or decreased air movement noted. Abdomen: Soft and nontender. Bowel sounds normal in all 4 quadrants. No distention noted. No organomegaly noted. No visible injury noted. Back: Full range of motion noted. Skin: Skin warm and dry. Normal skin color. Normal skin turgor. No rashes/lesions/lacerations noted. Presence of atypical birthmarks. Extremities: No lower extremity edema. Extremities exhibit normal range of motion. Extremities nontender. Neuro: Oriented X 3. No motor deficit. No sensory deficit. Reflexes normal. Results - Labs: Noted previous slightly low potassium level
== END 2025-01-27 09:56 | disposition home or self-care (01) ==
LOC: HO.HMCH 09:26
PROVIDERS: PCP Internal Medicine; Visit Provider Physician Assistant Medical
DX: E78.00 Pure hypercholesterolemia, unspecified (principal); I10 Essential (primary) hypertension; E66.9 Obesity, unspecified; Z68.33 Body mass index [BMI] 33.0-33.9, adult; H93.11 Tinnitus, right ear; H93.12 Tinnitus, left ear

== ENCOUNTER → 2025-01-27 09:25 | Outpatient (BNVA) | payer BC, SELFPAY | PROVIDERS: PCP Internal Medicine; Visit Provider Physician Assistant Medical | DX: E78.00 Pure hypercholesterolemia, unspecified (principal); I10 Essential (primary) hypertension; E66.9 Obesity, unspecified; Z68.33 Body mass index [BMI] 33.0-33.9, adult; E78.5 Hyperlipidemia, unspecified; H93.19 Tinnitus, unspecified ear; Z79.899 Other long term (current) drug therapy | CPT/HCPCS: 96127 ==

== ENCOUNTER 2025-03-22 08:18 | Outpatient (REF) | payer BC, SELFPAY ==
--- OUTSIDE RECORDS SUMMARY | 2025-03-22 08:25 | XMS_ITS | Patient Health Record ---
[facility] Address [address] [place] [address] Care Team Providers Care Molder Wax Ball Name Role Phone Jreamie, Kartik Primary Care Provider Black, Joselyn Unavailable [phone] Allergies No Known Allergies Reason For Referral No Information Medications Medication SIG (Take, Route, Frequency, Duration) Notes Start Date End Date Status Enalapril-hydroCHLOROthiazi de 10-25 MG 1 tablet Orally Once a day for 30 day(s) Active Atorvastatin Calcium 10 MG 1 tablet Oral ly Once a day for 30 day(s) Active Aspirin Active Immunizations Vaccine Route Administration Date Status Comme nts COVID-19 [employer] Stuart/Perico Unknown 09/28/2021 Administered First Dose: 02/05/21 Booster Shot Pfizer Social History Tobacco Use: Social History Observation Description Date Details (start date - stop date) Never Smoker NA - NA Tobacco Use/Smoking Question Answer Notes Are you a: nonsmoker Additional Findings: Tobacco Non-User Current no n-smoker Alcohol Screen Question Answer Notes Did you have a drink containing alcohol in the p ast year? No Points 0 Interpretation Negative Tobacco use other than smoking: Question Answer Notes Are you an other tobacco user? No Problems Problem Type SNOMED Code ICD Code Onset Dates Problem Status W/U Status Risk Notes Problem Acquired hallux valgus (36196003) Hallux valgus (acquired), right foot (M20.11) Active confirmed Problem Acquired hammer toe of right foot (8605926327340 105) Other hammer toe(s) (acquired), right foot (M20.41) Active confirmed Problem Acquired hammer toe of left foot ([id number] 103) Other hammer toe(s) (acquired), left foot (M20.42) Active confirmed Plan Of Treatment No Information Insurance Providers Payer Name Payer Address Payer Phone Subscriber Number Group Number Insured Name Patient Relationship to Insured Coverage Start Date Coverage End Date [facility] [address] [place] [address] [phone] [id number] Dimitris Singh Self - patient is the insured Medical (General) History Medical History History ICD Code Broken bones Heart disease High blood pressure Mumps Chicken pox Surgical History Surgery Date(Month/Year) colonoscopy wisdom teeth extraction
[2025-03-22 11:14] LABS: Appearance Urine Clear; Color Urine Yellow; Glucose Urine UA Negative (Negative); Leukocyte Esterase Urine Negative (Negative); Nitrite Urine Negative (Negative); PH 7.5 (5.0-9.0); Specific Gravity - Urine 1.025 (1.005-1.025); Urine Blood Negative (Negative); Urine Ketones Trace mg/dL (Negative); Urine Protein Trace mg/dL (Neg-Trace)
[2025-03-22 11:17] LABS: Mean Corpuscular Hemoglobin 28.2 pg (27.0-33.0); Mean Corpuscular Volume 82.7 fL (80.0-98.0); Mean Platelet Volume 10.9 fL (9.4-12.4); Platelet Count 254 X10*3/uL (160-400); Red Blood Count 5.68 X10*6/uL (4.60-5.80); White Blood Count 8.1 X10*3/uL (4.8-10.8)
[2025-03-22 11:48] LABS: Alanine Aminotransferase 50 U/L (0-40); Albumin Level 4.3 g/dL (3.5-5.0); Alkaline Phosphatase 49 U/L (39-117); Anion Gap 11 (12-20); Aspartate Amino Transferase 31 U/L (5-37); Bilirubin Direct 0.2 mg/dL (0.0-0.5); Bilirubin Total 0.5 mg/dL (0.0-1.0); Blood Urea Nitrogen 13 mg/dL (9-16); Calcium 9.6 mg/dL (8.4-10.2); Carbon Dioxide 28 mmol/L (22-29); Chloride 103 mmol/L (96-108); Cholesterol 165 mg/dL (<200); Estimated Glomerular Filt Rate > 60; Glucose Random 98 mg/dL (60-115); HDL Cholesterol 44 mg/dL (>40); LDL Cholesterol Calculated 103 mg/dL (<100); Sodium 139 mmol/L (135-145); Thyroid Stimulating Hormone 2.44 uIU/mL (0.32-4.0); Total Protein 7.3 g/dL (6.5-8.0); Triglycerides 94 mg/dL (<150)
== END 2025-03-22 08:19 | disposition home or self-care (01) ==
LOC: HO.10HDL 08:18
PROVIDERS: Visit Provider Internal Medicine
DX: E78.00 Pure hypercholesterolemia, unspecified (principal); I10 Essential (primary) hypertension
CPT/HCPCS: 36415; 80048; 80061; 80076; 81003; 84443; 85027

== ENCOUNTER 2025-05-12 07:59 | Outpatient (REF) | payer BC, SELFPAY ==
--- OUTSIDE RECORDS SUMMARY | 2025-05-12 08:02 | XMS_ITS | Patient Health Record ---
Author Organization [facility] Address [address] [place] [address] Care Team Providers Care Asbestos Wire Finisher Name Role Phone Jeramie, Kartik Primary Care Provider Black, Joselyn Unavailable [phone] Allergies No Known Allergies Reason For Referral No Information Medications Medication SIG (Take, Route, Frequency, Duration) Notes Start Date End Date Status Enalapril-hydroCHLOROthiazi de 10-25 MG 1 tablet Orally Once a day; Duration: 30 day(s) Active Atorvastatin Calcium 10 MG 1 tablet Oral ly Once a day; Duration: 30 day(s) Active Aspirin Active Immunizations Vaccine [...] Status Risk Notes Problem Acquired hallux valgus (56108074) Hallux valgus (acquired), right foot (M20.11) Active confirmed Problem Acquired hammer toe of right foot (9634926015807 105) Other hammer toe(s) (acquired), right foot (M20.41) Active confirmed Problem Acquired hammer toe of left foot (2139545338125 103) Other hammer toe(s) (acquired), left foot (M20.42) Active confirmed Plan Of Treatment No Information Insurance Providers Payer Name Payer Address Payer Phone Subscriber Number Group Number Insured Name Patient Relationship to Insured Coverage Start Date Coverage End Date [facility] [address] [place] [address] [id number] Dimitris Singh Self - patient is the insured Medical (General) History Medical History History ICD Code Broken bones Heart disease High blood pressure Mumps Chicken pox Surgical History Surgery Date(Month/Year) colonoscopy wisdom teeth extraction
[2025-05-12 11:22] LABS: Anion Gap 8 (12-20); Blood Urea Nitrogen 13 mg/dL (9-16); Calcium 9.5 mg/dL (8.4-10.2); Carbon Dioxide 28 mmol/L (22-29); Chloride 106 mmol/L (96-108); Estimated Glomerular Filt Rate > 60; Potassium 3.1 mmol/L (3.3-5.1); Sodium 139 mmol/L (135-145)
== END 2025-05-12 08:00 | disposition home or self-care (01) ==
LOC: HO.10HDL 07:59
PROVIDERS: Visit Provider Internal Medicine
DX: E87.6 Hypokalemia (principal)
CPT/HCPCS: 36415; 80048

== ENCOUNTER 2025-07-01 10:18 | Outpatient (REF) | payer BC, SELFPAY ==
--- OUTSIDE RECORDS SUMMARY | 2025-07-01 10:59 | XMS_ITS | Patient Health Record ---
Author Organization [facility] Address [address] [place] [address] Care Team Providers Care Log Yard Manager Name Role Phone Jeramie, Kartik Primary Care Provider [phone] Black, Joselyn Unavailable [phone] Allergies No Known Allergies Reason For Referral [...] Status Risk Notes Problem Acquired hallux valgus (29409914) Hallux valgus (acquired), right foot (M20.11) Active confirmed Problem Acquired hammer toe of right foot (4138757668358 105) Other hammer toe(s) (acquired), right foot (M20.41) Active confirmed Problem Acquired hammer toe of left foot (4864792072368 103) Other hammer toe(s) (acquired), left foot (M20.42) Active confirmed Plan Of Treatment No Information Insurance Providers Payer Name Payer Address Payer Phone Subscriber Number Group Number Insured Name Patient Relationship to Insured Coverage Start Date Coverage End Date [facility] [address] [place] [address] [phone] [id number] Dimitris Singh Self - patient is the insured Medical (General) History Medical History History ICD Code Broken bones Heart disease High blood pressure Mumps Chicken pox Surgical History Surgery Date(Month/Year) colonoscopy wisdom teeth extraction
[2025-07-01 13:00] LABS: Anion Gap 11 (12-20); Blood Urea Nitrogen 13 mg/dL (9-16); Calcium 9.6 mg/dL (8.4-10.2); Carbon Dioxide 27 mmol/L (22-29); Chloride 105 mmol/L (96-108); Estimated Glomerular Filt Rate > 60; Potassium 3.5 mmol/L (3.3-5.1); Sodium 139 mmol/L (135-145)
== END 2025-07-01 10:19 | disposition home or self-care (01) ==
LOC: HO.10HDL 10:18
PROVIDERS: Visit Provider Internal Medicine
DX: H61.23 Impacted cerumen, bilateral (principal); H60.313 Diffuse otitis externa, bilateral; E78.00 Pure hypercholesterolemia, unspecified
CPT/HCPCS: 36415; 69210; 80048

== ENCOUNTER 2025-07-01 10:48 | Outpatient (AMB) | payer BC, SELFPAY ==
[2025-07-01 11:40] VITALS: BP 116/64; PULSE 69; TEMP 36.6; O2SAT 97; BMI 32.6
--- NOTE | 2025-07-01 11:40 | MHC.OFFWIV ---
Intake Vital Signs 07/01/25 11:40 Height 5 ft 6 in Weight 202 lb BMI 32.6 BP 116/64 Blood Pressure Location Lt brachial Position Sitting Pulse 69 Pulse Source Pulse Oximeter Temp 97.9 F Temp Source Oral Pulse Oximetry (%) 97 Oxygen Delivery Method Room Air Intake Visit Reasons: EP bilat ear pressure, mostly LT Patient Tobacco Use Status: Never used Tobacco Allergies No Known Allergies (No Known Allergies*) Allergy (Verified 07/01/25 11:48) Do you need a note to return to daycare/school/sports/work: No HPI HPI Comments History of Present Illness Details History - The patient is a 54-year-old male presenting with ear pain and pressure, L>R. - The ear pain is intermittent and has been present since the beginning of the summer. - The patient denies any history of ear problems or upper respiratory infections at the onset of symptoms. - The patient reports sinus tenderness and pressure, which he associates with allergies. - An otoscopic examination revealed both ears are plugged with wax, which may be contributing to the symptoms. Physical Exam Physical Exam General: Cooperative, healthy appearing, comfortable, no acute distress and well developed Orientation: Patient oriented x3 Limitations: No limitations Head: Normal to inspection Ears: External ears normal bilaterally, TM's with impacted cerumen bilaterally Face and sinus: Tender sinuses with some pressure noted Neck: Normal visual inspection and Yes full ROM Respiratory: Normal respiratory effort and able to speak in complete sentences. Skin: No rashes or lesions noted Neuro: Patient oriented x3 Extremities: normal to inspection [facility] Medical History (Updated 07/01/25 @ 12:18 by Lizzy Mac PA-C) Follow-up exam, 3-6 months since previous exam Tinnitus Atypical nevi Obesity (BMI 30.0-34.9) Hypercholesterolemia Essential (primary) hypertension Surgical History History of colonoscopy (~11/05/18) History of vasectomy Family History Father Prostate cancer Hypertension Mother Hypertension Sister No problems noted. Son No problems noted. Son No problems noted. Social History Housing: House Alcohol intake: never Patient Tobacco Use Status: Never used Tobacco e-Cigarette/Vaping Use: Never Used Second Hand Smoke Exposure: No service: No Current occupational status: employed Cognitive needs: No Hearing needs: No Vision needs: Yes (Glasses) Review of Systems Const All systems reviewed & are unremarkable except as noted in HPI and below Physical Exam Vital Signs: Last Vital Signs Temp 97.9 F 07/01/25 11:40 Pulse 69 07/01/25 11:40 BP 116/64 07/01/25 11:40 Pulse Ox 97 07/01/25 11:40 Oxygen Delivery Method Room Air 07/01/25 11:40 BMI result Body Mass Index 32.6 Office Procedures Cerumen Removal From which ear canal was the cerumen removed: bilateral Removal: irrigation and otoscope w/curette Notes: patient tolerated procedure well, no complications and ear canal clear 78400-Eif Irrigation/Lavage Assessment & Plan Assessment & Plan (1) Bilateral impacted cerumen: Code(s): H61.23 - Impacted cerumen, bilateral Plan: Plan Patient was informed and verbally consented to the use of an ambient scribe for clinic note documentation during this visit. 1. Earwax Impaction - Performed ear irrigation to remove wax impaction. - If irrigation is unsuccessful, recommend using ear drops for a week and then reassess. (2) Otitis externa of both ears: Code(s): H60.93 - Unspecified otitis externa, bilateral Qualifiers: Otitis externa type: diffuse Chronicity: acute Qualified Code(s): H60.313 - Diffuse otitis externa, bilateral Plan: After irrigation, bilateral EAC's noted with infection, sent drops to pharmacy. Orders: Orders AMB Cerumen Removal Today H61.23 - Impacted cerumen, bilateral Medications: New fmldsyou-oibqttvri-VR 3.5-10,000-1 mg/mL-unit/mL-% apply to both ears 4 drps otic (ears) Q8H 20 mL 0RF 7 days Coding Level of Care Code Est Pt Level 4 (04803) Diagnoses Bilateral impacted cerumen H61.23 Acute diffuse otitis externa of both ears H60.313 Otitis externa type: diffuse Chronicity: acute CPT Codes Office Procedure - CPT: 97040-Oth Irrigation/Lavage ([id number])
== END 2025-07-01 12:16 | disposition home or self-care (01) ==
PROVIDERS: PCP Internal Medicine; Visit Provider Physician Assistant
DX: H60.313 Diffuse otitis externa, bilateral (principal); H61.23 Impacted cerumen, bilateral

== ENCOUNTER 2025-08-25 14:30 | Outpatient (AMB) | payer BC, SELFPAY ==
--- NOTE | 2025-08-25 14:38 | MHC.PC.OV ---
Vital Signs 08/25/25 14:39 Height 5 ft 6 in Weight 207 lb 6 oz BMI 33.5 BP 146/68 H Blood Pressure Location Lt brachial Position Sitting Pulse 66 Pulse Source Pulse Oximeter Temp 97.1 F Temp Source Temporal Artery Scan Pulse Oximetry (%) 97 Oxygen Delivery Method Room Air Intake Visit Reasons: Annual Exam Intake Note: Patient is here today for a physical. Director Of Community Services Required: No Assistant Softball Coach: Not Required per policy Accompanied by: Self / Same As Patient Allergies No Known Allergies (No Known Allergies*) Allergy (Verified 08/25/25 14:39) Tobacco use date assessed: 08/25/25 Dental Screening Dental Screen Date: 01/27/25 [facility] Medical History (Updated 07/01/25 @ 12:18 by Lizzy Mac PA-C) Follow-up exam, 3-6 months since previous exam Tinnitus Atypical nevi Obesity (BMI 30.0-34.9) Hypercholesterolemia Essential (primary) hypertension Surgical History History of colonoscopy (~11/05/18) History of vasectomy Family History Father Prostate cancer Hypertension Mother Hypertension Sister No problems noted. Son No problems noted. Son No problems noted. Social History Housing: House Alcohol intake: never Patient Tobacco Use Status: Never used Tobacco e-Cigarette/Vaping Use: Never Used Second Hand Smoke Exposure: No service: No Current occupational status: employed Cognitive needs: No Hearing needs: No Vision needs: Yes (Glasses) Questionnaire PHQ-9 Over the last 2 weeks, how often have you been bothered by any of the following problems? 1. Little interest or pleasure in doing things: not at all 2. Feeling down, depressed, or hopeless: not at all 3. Trouble falling or staying asleep, or sleeping too much: not at all 4. Feeling tired or having little energy: not at all 5. Poor appetite or overeating: not at all 6. Feeling bad about yourself - or that you are a failure or have let yourself or your family down: not at all 7. Trouble concentrating on things, such as reading the newspaper or watching television: not at all 8. Moving or speaking so slowly that other people could have noticed. Or the opposite - being so fidgety or restless that you have been moving around a lot more than usual: not at all 9. Thoughts that you would be better off or of hurting yourself in some way: not at all Total score: 0 Depression Screening Interpretation: Negative Depression Screening Done: Yes Source: Developed by Drs. Denis Vallejo, Cassandra Burt, Chaz Pierce and colleagues, with an educational matheus from [employer]). Thrive Questionnaire Date Thrive assessed: 01/27/25 I am a: Patient What is your living situation today?: I have a steady place to live Within the past 12 months, did the food you bought not last and you didn't have the money to get more?: I choose not to answer this question Within the past 12 months, did you worry whether your food would run out before you got money to buy more?: I choose not to answer this question Do you have trouble paying for medicines?: No Do you have trouble getting transportation to medical appointments?: No Do you have trouble paying your heating and electricity bill?: I choose not to answer this question Do you have trouble taking care of your child, family member or friend?: Yes Do you have trouble with day-to-day activities such as bathing, preparing meals, shopping, managing finances, etc.?: No Are you currently unemployed and looking for a job?: No Are you interested in more education?: No Please select the resources that you would like help with: None Currently or been in a relationship where the following occur: No concerns reported THRIVE Score: 0 AUDIT C Alcohol Use Questionnaire (AUDIT-C) 1. How often do you have a drink containing alcohol?: Monthly or less 2. How many drinks containing alcohol do you have on a typical day when you are drinking?: 1 or 2 3. How often do you have six or more drinks on one occasion?: Never Total Score: 1 PUMA-7 AMB Questionnaire PUMA-7 Date PUMA - 7 assessed: 01/27/25 Feeling nervous, anxious, or on edge: 0 = Not at all Not being able to stop or control worryin = Not at all Worrying too much about different things: 0 = Not at all Trouble relaxin = Not at all Being so restless that it is hard to sit still: 0 = Not at all Becoming easily annoyed or irritable: 0 = Not at all Feeling afraid as if something awful might happen: 0 = Not at all Total PUMA-7 score (0-4 normal; 5-9 mild; 10-14 moderate; 15-21 severe): 0 Source: Developed by Drs. Denis Vallejo, Cassandra Burt, Chaz Pierce and colleagues, with an educational matheus from [employer]). Physical exam (Primary Care) Vital Signs: Last Vital Signs Temp 97.1 F 08/25/25 14:39 Pulse 66 08/25/25 14:39 BP 146/68 H 08/25/25 14:39 Pulse Ox 97 08/25/25 14:39 Oxygen Delivery Method Room Air 08/25/25 14:39 BMI result Body Mass Index 33.5 Tobacco/Smoking Status: Tobacco use Status Tobacco use date assessed 08/25/25 08/25/25 14:43 Patient Tobacco Use Status Never used Tobacco 08/25/25 14:43 e-Cigarette/Vaping Use Never Used 08/25/25 14:43 PHQ-9: PHQ-9 Score PHQ-9: Total score 0 08/25/25 14:43 Depression Screening Interpretation: Negative Thrive Assessment: Date of Thrive Assessment Date Thrive assessed 01/27/25 08/25/25 14:43 Currently or been in a relationship where the following occur: No concerns reported Coding Level of Care Code Est Pt Prev Care 40-64y(57598) Diagnoses Annual physical exam Z00.00 Assessment & Plan Assessment & Plan (1) Annual physical exam: Code(s): Z00.00 - Encounter for general adult medical examination without abnormal findings Category: Medical Plan: History of Present Illness - The patient is a 54-year-old male presenting for a routine physical examination and health concerns. - Tinnitus: Persistent ringing in the ears, with a scheduled shearing machine tender appointment for further evaluation. - Skin lesions: Multiple skin lesions and lumps noted, with irritation from a lump due to shirt friction. - Prostate health: Concerns about prostate health with a family history of related issues. - Hypokalemia: Previously low potassium levels corrected with treatment, currently normalized but under monitoring. - Hypertension: Managed with enalapril and hydrochlorothiazide, with potential medication adjustment if potassium levels are low. - Preventative care: Due for a colonoscopy, with rescheduling in progress. - Vaccinations: Influenza vaccine pending, considering COVID-19 vaccine based on age and health status. 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 Review of Systems - Auditory: Reports tinnitus. - Dermatological: Reports skin lesions and lumps. - Genitourinary: Concerns about prostate health. - Cardiovascular: Denies chest pain or palpitations. Physical Exam General: Cooperative and healthy appearing Nutritional Appearance: Well nourished Orientation/consciousness: Patient oriented x3 Limitations: No limitations Head: Normal to inspection General: Appearance normal, both eyes and all related structures Neck: Normal visual inspection Chest: Normal palpation of entire chest wall Respiratory: Normal respiratory effort Neurology: Patient oriented x3 Results - Labs: Previous blood work showed low potassium levels, which were corrected and normalized upon retesting. Plan - Schedule a hearing test and specialist appointment for tinnitus evaluation. - Refer to a rehabilitation nurse for evaluation and possible excision of skin lesions. - Monitor potassium levels and adjust hypertension medication if necessary. - Reschedule colonoscopy for preventative care. - Administer influenza vaccine and discuss COVID-19 vaccination options. Discussion Notes I discussed with the patient the importance of monitoring potassium levels due to the use of diuretics and the potential need to adjust hypertension medication. We also talked about the need for a colonoscopy and the benefits of receiving the influenza vaccine. The patient was informed about the option of receiving the COVID-19 vaccine based on his age and health status. I recommended a referral to a rehabilitation nurse for the evaluation of skin lesions and discussed the upcoming hearing test for tinnitus evaluation. Patient Instructions - Follow up with the shearing machine tender for tinnitus evaluation. - Attend the dermatology appointment for skin lesion evaluation. - Monitor blood pressure and potassium levels as advised. - Schedule and attend the colonoscopy appointment. - Receive the influenza vaccine and consider the COVID-19 vaccine. Orders: Orders Complete Blood Count no Diff Today I10 - Essential (primary) hypertension Basic Metabolic Panel Today I10 - Essential (primary) hypertension Prostate Specific Antigen Scr Today I10 - Essential (primary) hypertension Referrals Dermatology Referral D22.9 - Melanocytic nevi, unspecified
[2025-08-25 14:39] VITALS: BP 146/68; PULSE 66; TEMP 36.2; O2SAT 97; BMI 33.5
--- OUTSIDE RECORDS SUMMARY | 2025-08-25 18:23 | XMS_ITS | Patient Health Record ---
[facility] Address [address] [place] [address] Care Team Providers Care Fruit Bar Maker Name Role Phone Jeramie, Kartik Primary Care Provider Black, Joselyn Unavailable [phone] Allergies No Known Allergies Reason For Referral [...] Status Risk Notes Problem Acquired hallux valgus (26352012) Hallux valgus (acquired), right foot (M20.11) Active confirmed Problem Acquired hammer toe of right foot ([id number] 105) Other hammer toe(s) (acquired), right foot (M20.41) Active confirmed Problem Acquired hammer toe of left foot ([id number] 103) Other hammer toe(s) (acquired), left foot (M20.42) Active confirmed Plan Of Treatment No Information Insurance Providers Payer Name Payer Address Payer Phone Subscriber Number Group Number Insured Name Patient Relationship to Insured Coverage Start Date Coverage End Date [facility] [address] [place] [address] [id number] Dimitris Singh Self - patient is the insured Medical (General) History Medical History History ICD Code Broken bones Heart disease High blood pressure Mumps Chicken pox Surgical History Surgery Date(Month/Year) colonoscopy wisdom teeth extraction
== END 2025-08-25 15:15 | disposition home or self-care (01) ==
LOC: HO.HMCH 14:32
PROVIDERS: PCP Internal Medicine; Visit Provider Internal Medicine
DX: Z00.00 Encounter for general adult medical examination without abnormal findings (principal); Z23 Encounter for immunization

== ENCOUNTER → 2025-08-25 14:30 | Outpatient (BNVA) | payer BC, SELFPAY | PROVIDERS: PCP Internal Medicine; Visit Provider Internal Medicine | DX: Z00.00 Encounter for general adult medical examination without abnormal findings (principal); I10 Essential (primary) hypertension; D22.9 Melanocytic nevi, unspecified; Z23 Encounter for immunization | CPT/HCPCS: 90471; 90656; 96127 ==